=== PATIENT | male | born 1955 | race Caucasian/White ===

== ENCOUNTER 2022-08-22 17:08 | Emergency (ER) | payer BC, MEDICARE ==
[~2022-08-22] VITALS: Ht 177.8 cm; Wt 84.1 kg
[2022-08-22 18:17] LABS: BLOOD UREA NITROGEN 15 MG/DL (7-18); CALCIUM LEVEL 8.7 MG/DL (8.8-10.2); CARBON DIOXIDE LEVEL 22 MEQ/L (21-32); CHLORIDE LEVEL 108 MEQ/L (98-107); CREATININE FOR GFR 0.78 MG/DL (0.70-1.30); GLOMERULAR FILTRATION RATE > 60.0 (>49); GLUCOSE, FASTING 86 MG/DL (70-100); POTASSIUM SERUM 3.9 MEQ/L (3.5-5.1); SODIUM LEVEL 139 MEQ/L (136-145)
[2022-08-22 18:18] LABS: ALBUMIN 3.5 GM/DL (3.2-5.2); ALT/SGPT 24 U/L (12-78); BILIRUBIN,DIRECT 0.1 MG/DL (0.0-0.2); BILIRUBIN,TOTAL 0.5 MG/DL (0.2-1.0); TOTAL PROTEIN 6.9 GM/DL (6.4-8.2)
[2022-08-22] MEDS ORDERED: DEXTROSE 50% 50 ML SYRINGE IV STA (18:20)
[2022-08-22] MEDS ORDERED: levETIRAcetam INJection 1,500 MG in D5W 100 ML IV ONE (18:55)
[2022-08-22] MEDS ORDERED: DEXA0.5E2 PO (18:58)
[2022-08-22] MEDS ORDERED: LEVE250T5 PO (18:58)
[2022-08-22] MEDS ORDERED: DEXA5TA PO (19:00)
[2022-08-22 19:01] LABS: BASO % 0.5 % (0.0-1.0); EOS % 0.3 % (0.0-3.0); HEMATOCRIT 43.6 % (42.0-52.0); HEMOGLOBIN 14.8 g/dl (13.5-17.5); LYMPH # 0.5 10^3/uL (1.5-5.0); LYMPH % 8.1 % (24.0-44.0); MEAN CORPUSCULAR HEMOGLOBIN 31.8 pg (27.0-33.0); MEAN CORPUSCULAR HGB CONC 33.9 g/dl (32.0-36.5); MEAN CORPUSCULAR VOLUME 93.6 fl (80.0-96.0); MONO # 0.3 10^3/uL (0.0-0.8); MONO % 4.2 % (2.0-8.0); NEUTROPHILS # 5.3 10^3/uL (1.5-8.5); NEUTROPHILS % 86.7 % (36.0-66.0); PLATELET COUNT, AUTOMATED 139 10^3/uL (150-450); RED BLOOD COUNT 4.66 10^6/uL (4.30-6.10); WHITE BLOOD COUNT 6.2 10^3/uL (4.0-10.0)
[2022-08-22 19:16] LABS: INR 0.83; PROTHROMBIN TIME 11.8 SECONDS (12.7-14.5)
[2022-08-22 19:17] LABS: PARTIAL THROMBOPLASTIN TIME 24.7 SECONDS (25.9-37.0)
[2022-08-22 19:36] LABS: RSV AMPLIFICATION NEGATIVE (NEGATIVE)
[2022-08-23] MEDS ORDERED: levETIRAcetam **XR** 750MG TABLET (KEPPRA XR) PO ONE (00:40)
[2022-08-23] MEDS ORDERED: PHENYTOIN INJ 250 MG/5 ML VIAL (J1165) IV ONE (00:40)
[2022-08-23] MEDS ORDERED: DILA100C PO (00:43)
[2022-08-23 02:49] VITALS: BP 159/83
[2022-08-24] MEDS ORDERED: UNRESOLVED CLARIFICATION ENTRY XX SCH (00:01)
== END 2022-08-23 03:55 | disposition home or self-care (01) ==
LOC: M ED 17:08
DX: G40.89 Other seizures (principal); R00.1 Bradycardia, unspecified; F10.10 Alcohol abuse, uncomplicated; Z79.899 Other long term (current) drug therapy
CPT/HCPCS: 70450; 71045; 80047; 80048; 80076; 81000; 81015; 84484; 85025; 85610; 85730; 86850; 86900; 86901; 87631; 93005; 93041; 96374; 96375; 99285; J1165; J1953

== ENCOUNTER 2022-09-22 08:29 | Outpatient (RCR) | payer MEDICARE ==
[~2022-09-22 08:29] MED LIST: DEXA0.5E2 PO; DEXA5TA PO; DILA100C PO; LEVE250T5 PO
== END 2022-09-28 ==
LOC: M OT 08:29
DX: R29.818 Other symptoms and signs involving the nervous system (principal)

== ENCOUNTER → 2022-10-28 | Outpatient (RCR) | payer MEDICARE | LOC: M OT 10-02 09:06 | DX: R29.818 Other symptoms and signs involving the nervous system (principal) ==

== ENCOUNTER 2022-11-10 09:39 | Outpatient (RCR) | payer MEDICARE | END 2022-11-28 | LOC: M OT 09:39 → M ST 09:39 | DX: R29.818 Other symptoms and signs involving the nervous system (principal); R47.01 Aphasia ==